=== PATIENT | male | born 1995 | race Caucasian/White ===

== ENCOUNTER 2018-04-01 21:30 | Emergency (ER) | payer OTHER ==
[2018-04-02] MEDS: ONDANSETRON 4 MG ORAL DISINTEGRATING TAB (Q0162 PER 1MG) PO (00:55)
[2018-04-02] MEDS: METHOCARBAMOL 750 MG TAB PO (00:55)
== END 2018-04-02 01:07 | disposition home or self-care (01) ==
LOC: M ED 21:30
DX: S39.011A Strain of muscle, fascia and tendon of abdomen, initial encounter (principal); X58.XXXA Exposure to other specified factors, initial encounter; Y92.89 Other specified places as the place of occurrence of the external cause; Z72.0 Tobacco use; Z88.2 Allergy status to sulfonamides
CPT/HCPCS: Q0162

== ENCOUNTER 2018-07-04 13:37 | Emergency (ER) | payer OTHER ==
[2018-07-04] MEDS: KETOROLAC 60 MG/2 ML VIAL (J1885) IM (15:33)
== END 2018-07-04 16:24 | disposition home or self-care (01) ==
LOC: M ED 13:37
DX: M62.830 Muscle spasm of back (principal); J45.909 Unspecified asthma, uncomplicated; Z88.1 Allergy status to other antibiotic agents; Z88.2 Allergy status to sulfonamides
CPT/HCPCS: J1885